=== PATIENT | female | born 1970 | race African-American/Black ===

== ENCOUNTER 2021-11-08 06:21 | Emergency (ER) | payer OTHER ==
[2021-11-08 06:26] VITALS: BMI 41.9
[2021-11-08] MEDS ORDERED: ACETAMINOPHEN 500 MG TABLET (FP) PO ONE (07:25)
[2021-11-08] MEDS ORDERED: FAMOTIDINE 10 MG TABLET PO ONE (07:25)
[2021-11-08] MEDS ORDERED: MAG HYDROX/AL HYDROX/SIMETH -MYLANTA- ORAL SUSPENSION PO ONE (07:25)
[2021-11-08] MEDS ORDERED: ACETAMINOPHEN 325 MG TABLET (FP) ONE (07:35)
[2021-11-08] MEDS ORDERED: FAMOTIDINE 10 MG TABLET ONE (07:35)
[2021-11-08] MEDS ORDERED: MAG HYDROX/AL HYDROX/SIMETH 30 ML UNIT-DOSE CUP ONE ×2 (07:36→08:06)
[2021-11-08] MEDS ORDERED: ONDANSETRON 4 MG/2 ML VIAL IVPUSH ONE (07:51)
[2021-11-08] MEDS ORDERED: ONDANSETRON 4 MG/2 ML VIAL ONE (08:05)
[2021-11-08 08:21] LABS: BASO % 0.5 % (0-2.0); EOS % 0.4 % (0-4.5); HEMATOCRIT 35.4 % (32.4-45.2); HEMOGLOBIN 11.9 GM/dL (10.7-15.3); LYMPH % 24.7 % (8-40); MCH 28.9 pg (25.7-33.7); MCHC 33.5 g/dl (32.0-36.0); MEAN CELL VOLUME 86.3 fl (80-96); MEAN PLT VOLUME 7.4 fl (7.5-11.1); MONO % 9.5 % (3.8-10.2); NEUT % 64.9 % (42.8-82.8); PLATELET COUNT 306 10^3/uL (134-434); RDW 14.7 % (11.6-15.6); WHITE BLOOD COUNT 5.9 K/mm3 (4.0-10.0)
[2021-11-08 08:32] LABS: URINE APPEARANCE CLEAR; URINE BILIRUBIN NEGATIVE (NEGATIVE); URINE COLOR YELLOW; URINE GLUCOSE (UA) NEGATIVE (NEGATIVE); URINE KETONE NEGATIVE (NEGATIVE); URINE LEUK ESTERASE NEGATIVE (NEGATIVE); URINE NITRITE NEGATIVE (NEGATIVE); URINE PROTEIN NEGATIVE (NEGATIVE)
[2021-11-08 08:42] LABS: ALBUMIN 3.4 g/dl (3.4-5.0); CALCIUM 8.9 mg/dL (8.5-10.1)
[2021-11-08 08:46] LABS: CREATININE 1.1 mg/dL (0.55-1.3)
[2021-11-08 08:47] LABS: BILIRUBIN,TOTAL 1.5 mg/dL (0.2-1); TOT PROT 7.8 g/dl (6.4-8.2)
[2021-11-08] MEDS ORDERED: morphine CARPU-JECT 2 MG/1 ML DISP.SYRIN IVPUSH ONE (09:01)
[2021-11-08] MEDS ORDERED: LACTATED RINGERS SOLUTION 1000 ML INFUS.BAG IV ONE (09:01)
[2021-11-08 09:49] LABS: INR 1.46 (0.83-1.09); PROTHROMBIN TIME (PATIENT) 16.8 SEC (9.7-13.0)
[2021-11-08 09:52] LABS: ACTIVATED PTT 37.4 SECONDS (25.2-36.5)
[2021-11-08 10:20] LABS: BILIRUBIN,DIRECT 0.7 mg/dL (0.0-0.2)
[2021-11-08] MEDS ORDERED: morphine SULFATE 4 MG/ML VIAL ONE (10:37)
[2021-11-08] MEDS ORDERED: PIPERACILLIN/TAZOB 3.375 GM 3.375 GM in DEXTROSE 5%-WATER - 50 ML IVPB ONE (12:57)
[2021-11-08] MEDS ORDERED: SODIUM CHLORIDE 0.9% 500 ML INFUS.BAG IV ONE (13:02)
[2021-11-08] MEDS ORDERED: ACETAMINOPHEN 1000 MG/100 ML BAG IVPB ONE (14:32)
[2021-11-08] MEDS ORDERED: ACETAMINOPHEN INJECTION 100 ML IVPB ONE (14:46)
[2021-11-08 16:17] VITALS: TEMP 97.2
[2021-11-08 17:02] VITALS: BP 125/91; PULSE 80
== END 2021-11-08 17:03 | disposition short-term general hospital (02) ==
LOC: JER 06:21
PROC: 3E0333Z Introduction of Anti-inflammatory into Peripheral Vein, Percutaneous Approach (ICD-10-PCS; principal; 2021-11-08)
PROC: 3E033NZ Introduction of Analgesics, Hypnotics, Sedatives into Peripheral Vein, Percutaneous Approach (ICD-10-PCS; 2021-11-08)
PROC: 3E033NZ Introduction of Analgesics, Hypnotics, Sedatives into Peripheral Vein, Percutaneous Approach (ICD-10-PCS; 2021-11-08)
PROC: 3E033GC Introduction of Other Therapeutic Substance into Peripheral Vein, Percutaneous Approach (ICD-10-PCS; 2021-11-08)
PROC: 3E03329 Introduction of Other Anti-infective into Peripheral Vein, Percutaneous Approach (ICD-10-PCS; 2021-11-08)
DX: R74.01 Elevation of levels of liver transaminase levels (principal); R10.9 Unspecified abdominal pain
CPT/HCPCS: 0241U-QW; 36415; 71046-TC-FY; 76705-TC; 80053; 80307; 81003; 82248; 83615; 83690; 84484; 85025; 85610; 85730; 86705; 86708; 86803; 86850; 86900; 86901; 87086; 87340; 87517; 93005; 93010; 99285-25